=== PATIENT | male | born 1960 | race Caucasian/White ===

== ENCOUNTER 2019-05-19 06:31 | Inpatient (IN) ==
[2019-05-19] MEDS ORDERED: Albuterol 2.5 MG/3 ML NEBULIZER IH ONE (06:51)
[2019-05-19] MEDS ORDERED: Ringers Solution, Lactated 1,000 ML IVC SCH ×2 (07:00→07:15)
[2019-05-19] MEDS ORDERED: *HR* OxyCODONE Immed Rel 5 MG TABLET PO PRN ×2 (07:01→20:22)
[2019-05-19] MEDS ORDERED: *HR* Promethazine 25 MG/ML VIAL IVP PRN (07:01)
[2019-05-19] MEDS ORDERED: Ondansetron 4 MG/2 ML VIAL ONE (07:16)
[2019-05-19] MEDS ORDERED: *HR* Rocuronium Bromide 50 MG/5 ML VIAL ONE (07:16)
[2019-05-19] MEDS ORDERED: Lidocaine -MPF 2% 2 ML VIAL ONE ×2 (07:16→07:47)
[2019-05-19] MEDS ORDERED: *HR* Propofol 200 MG/20 ML VIAL IVP ONE (07:16)
[2019-05-19] MEDS ORDERED: *HR* Midazolam HCl 2 MG/2 ML VIAL ONE (07:16)
[2019-05-19] MEDS ORDERED: *HR* FentaNYL (PF) 100 MCG/2 ML VIAL ONE ×5 (07:16→13:28)
[2019-05-19] MEDS ORDERED: Dexamethasone 4 MG/ML VIAL ONE (07:16)
[2019-05-19] MEDS ORDERED: Neostigmine Methylsulfate 3 MG/3 ML SYRINGE ONE (07:16)
[2019-05-19] MEDS ORDERED: Heparin 1,000 UNITS/500 mL 500 ML ONE (07:30)
[2019-05-19] MEDS ORDERED: *HR* Heparin 5,000 UNIT/ML VIAL ONE ×2 (07:30→12:02)
[2019-05-19] MEDS ORDERED: Lidocaine HCL 4 ML Topical Solution (Laryng-O-Jet Kit Sterile Pak) TP ONE (07:42)
[2019-05-19] MEDS ORDERED: *HR* Phenylephrine 10 MG/ML VIAL ONE (07:53)
[2019-05-19] MEDS ORDERED: Heparin 1,000 UNITS/500 mL 1,500 ML ONE (07:59)
[2019-05-19] MEDS: CeFAZolin Syr 2,000MG/20 ML 2,000 MG/20 ML SYRINGE IVPB ONE ×2 (08:11→13:40)
[2019-05-19] MEDS ORDERED: ceFAZolin 1,000 MG, Sodium Chloride IRRigation 1,000 ML IR ONE (08:15)
[2019-05-19] MEDS ORDERED: EPHEDrine 50 MG/ML VIAL ONE (14:33)
[2019-05-19] MEDS ORDERED: *HR* HYDROMORPHONE 2 MG/ML VIAL ONE (15:06)
[2019-05-19] MEDS ORDERED: *HR* Metoprolol 5 MG/5 ML VIAL IVP ONE (15:39)
[2019-05-19] MEDS ORDERED: Lacri-Lube 3.5 GM TUBE ONE (15:45)
[2019-05-19] MEDS: *HR* HYDROmorphone (PF) 1 MG/ML SYRINGE IVP PRN ×2 (16:12→16:27)
[2019-05-19] MEDS ORDERED: Acetaminophen 325 MG TABLET PO PRN ×2 (16:58→20:22)
[2019-05-19] MEDS ORDERED: *HR* Labetalol 20 MG/4 ML SYRINGE IVP PRN (16:58)
[2019-05-19] MEDS ORDERED: Ondansetron 4 MG/2 ML VIAL IVP PRN (16:58)
[2019-05-19] MEDS ORDERED: *HR* HYDROcodone/Acet 5/325 mg TABLET PO PRN (16:58)
[2019-05-19] MEDS ORDERED: Naloxone 0.4 MG/ML INJ IVP PRN (16:58)
[2019-05-19] MEDS ORDERED: *HR* OxyCODONE Immed Rel 5 MG TABLET PO ONE (20:21)
[2019-05-20] MEDS: *HR* OxyCODONE Immed Rel 5 MG TABLET PO PRN ×4 (02:46→21:48)
[2019-05-20 04:08] LABS: BUN/Creatinine Ratio 16 (6-26); Blood Urea Nitrogen 11 mg/dL (8-23); Calcium 8.5 mg/dL (8.6-10.3); Carbon Dioxide 26 mEq/L (23-29); Chloride 104 mEq/L (98-107); Glucose 179 mg/dL (70-105); Osmolality,Calculated 288 (280-300); Potassium 3.8 mEq/L (3.5-5.1); Sodium 137 mEq/L (136-145); eGFR For African Americans > 60 (> 60); eGFR For Non-African Americans > 60 (> 60)
[2019-05-20 04:24] LABS: Basophils % 0.1 %; Hematocrit 21.5 % (37.5-50.1); Immature Granulocytes % 0.6 % (0-4); Lymphocytes # 1.1 K/mcL (0.6-4.6); Lymphocytes % 10.6 %; Mean Corpuscular HGB Conc 34.4 g/dL (31.6-35.5); Mean Corpuscular Hemoglobin 31.9 pg (28.0-33.3); Mean Corpuscular Volume 92.7 fL (83.0-100.0); Mean Platelet Volume 9.4 fL (9.4-12.4); Monocytes # 0.8 K/mcL (0.0-1.3); Monocytes % 7.8 %; Neutrophils # 8.5 K/mcL (1.6-8.9); Platelet Count 180 K/mcL (140-400); Red Blood Count 2.32 M/mcL (4.19-5.50); Red Cell Distribution Width 12.8 % (11.5-14.5); Segmented Neutrophils % 80.9 %
[2019-05-20 04:27] LABS: Hemoglobin 7.4 g/dL (12.9-16.9); White Blood Count 10.5 K/mcL (4.3-11.1)
[2019-05-20] MEDS: Multivit/Ca/Min/Fe/FA 1 TAB TABLET PO SCH ×2 (07:50→08:08)
[2019-05-20] MEDS: *HR* HYDROcodone/Acet 5/325 mg TABLET PO PRN ×3 (07:50→20:19)
[2019-05-20] MEDS: Lisinopril 20 MG TABLET PO SCH ×2 (07:50→08:08)
[2019-05-20] MEDS: Cholecalciferol (D-3) 1,000 UNIT (25MCG) TABLET PO SCH ×2 (07:50→08:08)
[2019-05-20] MEDS: Latanoprost 2.5 ML BOTTLE LEFT EYE SCH ×2 (07:51→08:08)
[2019-05-20] MEDS: Aspirin Enteric Coated 81 MG Tablet PO SCH ×2 (07:51→08:06)
[2019-05-20] MEDS ORDERED: 0.9 % Sodium Chloride 250 ML ONE (16:05)
[2019-05-21 01:15] LABS: Hematocrit 24.6 % (37.5-50.1); Hemoglobin 8.3 g/dL (12.9-16.9)
[2019-05-21] MEDS: *HR* HYDROcodone/Acet 5/325 mg TABLET PO PRN ×2 (03:05→10:12)
[2019-05-21] MEDS: *HR* OxyCODONE Immed Rel 5 MG TABLET PO PRN (05:29)
[2019-05-21 07:21] VITALS: BP 107/65
[2019-05-21] MEDS: Aspirin Enteric Coated 81 MG Tablet PO SCH (08:11)
[2019-05-21] MEDS: Multivit/Ca/Min/Fe/FA 1 TAB TABLET PO SCH (08:11)
[2019-05-21] MEDS: Lisinopril 20 MG TABLET PO SCH (08:11)
[2019-05-21] MEDS: Cholecalciferol (D-3) 1,000 UNIT (25MCG) TABLET PO SCH (08:11)
[2019-05-21] MEDS: Latanoprost 2.5 ML BOTTLE LEFT EYE SCH (08:16)
== END 2019-05-21 11:45 | disposition home or self-care (01) | DRG 169 ==
LOC: SAMDAY 06:31 → 2NNU 16:52
PROVIDERS: ADMIT Surgery Vascular Surgery; ATTEND Surgery Vascular Surgery